=== PATIENT | female | born 1990 | race Caucasian/White ===

== ENCOUNTER 2017-10-03 15:02 | Observation (INO) | payer OTHER ==
[~2017-10-03 15:02] MED LIST: LEVOXYL0.125 MG PO; MULTIPLE VITAMI1 CAP PO; PARAGARD T
[2017-10-03] MEDS ORDERED: LEVOXYL0.1 MG PO (15:42)
[2017-10-03] MEDS ORDERED: ZOLOFT 50MG50 MG PO (15:42)
[2017-10-03 16:24] VITALS: BP 113/61; PULSE 99; TEMP 98.4
[2017-10-03] MEDS ORDERED: [UNRECOGNIZED DRUG - SUPPLY] (16:30)
[2017-10-03 18:01] VITALS: BP 107/64; PULSE 74
[2017-10-03 18:02] VITALS: BP 115/63; PULSE 73; TEMP 97.9
[2017-10-03 18:30] VITALS: BP 109/57; PULSE 60
[2017-10-03 19:08] VITALS: BP 119/68; PULSE 60; TEMP 97.8
== END 2017-10-03 20:40 | disposition home or self-care (01) ==
LOC: SURG 15:02
DX: N13.2 Hydronephrosis with renal and ureteral calculous obstruction (principal); I42.9 Cardiomyopathy, unspecified; I49.5 Sick sinus syndrome; E03.9 Hypothyroidism, unspecified; G40.909 Epilepsy, unspecified, not intractable, without status epilepticus; Z95.0 Presence of cardiac pacemaker; Z97.5 Presence of (intrauterine) contraceptive device; F17.210 Nicotine dependence, cigarettes, uncomplicated; F41.9 Anxiety disorder, unspecified; F43.10 Post-traumatic stress disorder, unspecified; N83.202 Unspecified ovarian cyst, left side; Z88.3 Allergy status to other anti-infective agents; Z88.2 Allergy status to sulfonamides
CPT/HCPCS: C1769; C2617; G0379; J0690; J1100; J1885; J2405; J2704; J3010; J7030